=== PATIENT | male | born 1970 | race Caucasian/White ===

== ENCOUNTER 2016-11-27 16:27 | Emergency (ER) | payer MEDICAID ==
--- NOTE | 2016-11-27 16:30 | ED Physician Chart ---
Chief Complaint/HPI - Patient Information Date Seen:: 11/27/16 Time Seen:: 16:29 Chief Complaint:: alcohol intoxication History of Present Illness:: 46-year-old male brought in by EMS with acute, constant, moderate, alcohol intoxication. Associated agitated behavior in front of a local [employer] restaurant. Historian:: Patient, EMS Review:: Nurse's Note Reviewed, EMS run form Reviewed Review of Systems - Review of Systems Other: Complete system review otherwise unremarkable except as noted in HPI. Past Medical History - Past Medical History Past Medical History: Other (alcohol abuse) Family History: None Social History: Non Smoker, Alcohol, No Drug Use Surgical History: None Psychiatricy History: None Medication: None Family Medical History - Family Member Mother History Unknown: Yes Ethnicity: Non- Physical Exam - Physical Examination Other:: INITIAL VITAL SIGNS: Reviewed by me GENERAL: Alert and interactive, uncooperative. No acute distress HEAD: Head is normocephalic and atraumatic EYES: EOMI. . No scleral icterus. No conjunctival injection ENT: Moist mucous membranes. NECK: Supple. No masses. Full range of motion RESPIRATORY: No tachypnea. Clear breath sounds bilaterally. No wheezing, rales, or rhonchi CV: Regular rate and rhythm. No murmurs, rubs, or gallops ABDOMEN: Soft, non-distended, non-tender. No guarding. No rebound. No masses. EXTREMITIES: No deformity. No cyanosis. No edema. SKIN: Warm and dry. No obvious rashes. NEUROLOGIC: Alert and oriented. Face is symmetric. Speech is normal. Moves all extremities equally. Motor and sensory distally intact. Labs/Radiology/EKG Results - Lab Results Results: Lab Results 11/27/16 11/27/16 Range/Units 16:51 16:51 WBC 3.9 L (4.8-10.8) Th/cmm RBC 4.76 (4.30-5.70) Mil/cmm Hgb 14.8 (13.2-17.3) gm/dL Hct 42.3 (39.0-49.0) % MCV 88.9 (80-99) fl MCH 31.0 H (26.0-30.0) pg MCHC Differential 34.9 (28.0-36.0) pg RDW 15.5 (11.5-20.0) % Plt Count 225 (150-400) Th/cmm MPV 6.4 fl Neutrophils % 43.2 (40.0-80.0) % Lymphocytes % 44.2 (20.0-50.0) % Monocytes % 11.0 H (2.0-10.0) % Eosinophils % 0.8 (0.0-5.0) % Basophils % 0.8 (0.0-2.0) % Sodium 139 (136-145) mEq/L Potassium 3.9 (3.5-5.1) mEq/L Chloride 96 L (98-107) mEq/L Carbon Dioxide 28.5 (21.0-31.0) mEq/L Anion Gap 18.4 H (7.0-16.0) BUN 12 (7-25) mg/dL Creatinine 1.0 (0.7-1.3) mg/dL Est GFR ( Amer) > 60.0 ml/min Est GFR (Non-Af Amer) > 60.0 ml/min BUN/Creatinine Ratio 12.0 Glucose 157 H (70-105) mg/dL Calcium 9.4 (8.6-10.3) mg/dL ED Septic Shock - . Is Septic Shock (SBP<90, OR Lactate>4 mmol\L) present?: No Reassessment (Disposition) - Reassessment Reassessment:: The patient's blood pressure was elevated (>120/80) but appears stable without evidence of hypertensive emergency or urgency. The patient was counseled about the risks hypertension urged to pursue outpatient monitoring and therapy within a week with her primary care physician. The patient received IV fluids and IV banana bag. He had no complaints of any pain. He felt much improved as he metabolizes alcohol. He was ambulating around the emergency room with no assistance. No abnormal gait. Patient felt much improved. Recommended follow-up with PCP 1-2 days. Gave return to ER precautions. Patient understands and agrees the plan. Reassessment Condition:: Improved - Diagnosis Diagnosis:: EtOH intoxication Elevated blood pressure without diagnosis of hypertension - Aftercare/Follow up Instructions Aftercare/Follow-Up Instructions:: Counseled pt regarding lab results/diagnosis & need follow up, Refer to Discharge Instructions - Patient Disposition Discharge/Transfer:: Home Time:: 18:41 Condition at Disposition:: Improved ED Discharge Plan - Patient Disposition Instructions: Alcohol Intoxication, [id number] Accepting Physician: Fabrice Flores [Active] - 1-3 Days
[2016-11-27] MEDS ORDERED: MAGNESIUM SULFATE IV ONE (16:33)
[2016-11-27] MEDS ORDERED: MULTIVITAMIN IV ONE (16:33)
[2016-11-27] MEDS ORDERED: FOLIC ACID IV ONE (16:33)
[2016-11-27] MEDS ORDERED: [UNRECOGNIZED DRUG - OTHER] IV ONE (16:33)
[2016-11-27] MEDS ORDERED: Dexamethasone Sodium Phos 4 mg/mL Vial IVP STA (16:34)
[2016-11-27 17:00] LABS: % BASOPHILS 0.8 % (0.0-2.0); % EOSINOPHILS 0.8 % (0.0-5.0); % LYMPHOCYTES 44.2 % (20.0-50.0); % NEUTROPHILS 43.2 % (40.0-80.0); HEMATOCRIT 42.3 % (39.0-49.0); HEMOGLOBIN 14.8 gm/dL (13.2-17.3); MEAN CELL VOLUME 88.9 fl (80-99); MEAN CORPUSCULAR HGB CONC 34.9 pg (28.0-36.0); MEAN PLATELET VOLUME 6.4 fl; NEUTROPHILE ABSOLUTE 1.7 Th/cmm (1.8-8.0); PLATELET COUNT 225 Th/cmm (150-400); RED BLOOD COUNT 4.76 Mil/cmm (4.30-5.70); RED CELL DISTRIBUTION WIDTH 15.5 % (11.5-20.0); WHITE BLOOD COUNT 3.9 Th/cmm (4.8-10.8)
[2016-11-27] MEDS ORDERED: Magnesium Sulfate 1 gm/2 mL 2mL Vial IV ONE (17:07)
[2016-11-27] MEDS ORDERED: Thiamine 100 mg/mL 2mL Vial ONE (17:07)
[2016-11-27] MEDS ORDERED: Multivitamin Inj 10 mL Vial IV ONE (17:08)
[2016-11-27] MEDS ORDERED: Dexamethasone Sodium Phos 4 mg/mL Vial ONE (17:09)
[2016-11-27 17:12] LABS: ANION GAP 18.4 (7.0-16.0); BUN - UREA NITROGEN 12 mg/dL (7-25); CALCIUM SERUM 9.4 mg/dL (8.6-10.3); CARBON DIOXIDE 28.5 mEq/L (21.0-31.0); CHLORIDE 96 mEq/L (98-107); GLUCOSE 157 mg/dL (70-105); POTASSIUM SERUM 3.9 mEq/L (3.5-5.1); SODIUM SERUM 139 mEq/L (136-145)
[2016-11-27] MEDS ORDERED: Sodium Chloride 0.9% 1,000 ML IV ONE (17:29)
[2016-11-27 18:50] LABS: URINE BILIRUBIN NEGATIVE (NEGATIVE); URINE COLOR YELLOW; URINE GLUCOSE (UA) NEGATIVE (NEGATIVE)
[2016-11-27 18:51] LABS: URINE BLOOD NEGATIVE (NEGATIVE); URINE KETONE NEGATIVE (NEGATIVE); URINE PROTEIN NEGATIVE (NEGATIVE); URINE UROBILINOGEN 0.2 E.U./dL (0.2 - 1.0)
[2016-11-27 18:52] LABS: URINE BACTERIA MODERATE /hpf (NONE SEEN); URINE EPITHELIAL CELLS NONE SEEN /lpf (FEW); URINE RBC NONE SEEN /hpf (0-5); URINE WBC 0-2 /hpf (0-5)
[2016-11-27 18:58] LABS: AMPHETAMINE URINE NEGATIVE (NEGATIVE); BARBITURATES URINE NEGATIVE (NEGATIVE)
== END 2016-11-27 18:45 | disposition home or self-care (01) ==
LOC: ER 16:27
DX: F10.129 Alcohol abuse with intoxication, unspecified (principal); R03.0 Elevated blood-pressure reading, without diagnosis of hypertension; Z88.6 Allergy status to analgesic agent; Z88.8 Allergy status to other drugs, medicaments and biological substances
CPT/HCPCS: 99284; 96374; 96375; 36415; 80300; 85025; 81001; 80048; J2405; J1100; J3411; J3475; J7030; X6226; X6598; Z7502